=== PATIENT | male | born 1975 | race Hispanic/Latino ===

== ENCOUNTER 2020-08-17 21:56 | Inpatient (IN) | payer OTHER ==
[~2020-08-17] VITALS: Ht 177.8 cm; Wt 115.2 kg
[2020-08-17 22:21] LABS: BASOPHILS % (AUTO) 0.2 % (0.0-5.0); EOSINOPHILS % (AUTO) 0.2 % (0.0-8.0); HEMATOCRIT 44.3 % (42-54); LYMPHOCYTES % (AUTO) 14.3 % (21.0-51.0); MEAN CORPUSCULAR HEMOGLOBIN 27.1 pg (27.0-33.0); MEAN CORPUSCULAR HGB CONC 33.6 g/dL (32.0-36.0); MEAN CORPUSCULAR VOLUME 80.7 fL (79-99); MONOCYTES % (AUTO) 7.5 % (3.0-13.0); NEUTROPHILS % (AUTO) 77.3 % (40.0-77.0); PLATELET COUNT (AUTO) 127 K/uL (130-400); RED BLOOD CELL COUNT(AUTO) 5.49 MIL/uL (4.50-6.20); RED CELL DISTRIBUTION WIDTH 13.2 % (11.0-15.5)
[2020-08-17] MEDS ORDERED: ALBUTEROL INHALER 90MCG/INH IH ONE (22:22)
[2020-08-17] MEDS ORDERED: ACETAMINOPHEN-CODEINE 300/30MG TAB ONE (22:23)
[2020-08-17 22:33] LABS: POTASSIUM 3.4 mmol/L (3.5-5.1)
[2020-08-17 22:40] LABS: ALBUMIN 3.4 g/dL (3.5-5.0); BILIRUBIN,TOTAL 0.4 mg/dL (0.2-1.0); TOTAL PROTEIN, SERUM 7.5 g/dL (6.0-8.3)
[2020-08-17 22:44] LABS: ABG HCO3 27.3 mmol/L (21.0-28.0); ABG OXYGEN SATURATION 91.9 % (95.0-99.0); ABG PCO2 41 mmHg (35-48)
[2020-08-18] MEDS ORDERED: DiphenhydrAMINE HCL 50 MG/ML VIAL IV PRN
[2020-08-18] MEDS ORDERED: ACETAMINOPHEN 325 MG TAB PO PRN
[2020-08-18] MEDS ORDERED: NITROGLYCERIN 0.4 MG SL TAB SL PRN
[2020-08-18] MEDS ORDERED: ALBUTEROL SULFATE 0.083% 2.5 MG/3 ML INH IH PRN
[2020-08-18] MEDS ORDERED: ONDANSETRON HCL 4 MG/2 ML VIAL IV PRN
[2020-08-18] MEDS ORDERED: DIPHENHYDRAMINE HCL 25 MG CAPSULE PO PRN
[2020-08-18] MEDS ORDERED: PHARMACY COMMUNICATION**REMDESIVIR ORDER MISC SCH (00:15)
[2020-08-18] MEDS ORDERED: DEXAMETHASONE SOD PHOSPHATE 10MG/ML 1ML VIAL ONE (00:50)
[2020-08-18] MEDS ORDERED: ERGOCALCIFEROL (VITAMIN D2) 50,000 UNIT CAPSULE ONE (00:50)
[2020-08-18] MEDS ORDERED: CEFTRIAXONE SODIUM 1 GM ONE (00:50)
[2020-08-18 02:59] LABS: BASOPHILS % (AUTO) 0.2 % (0.0-5.0); EOSINOPHILS % (AUTO) 1.6 % (0.0-8.0); HEMATOCRIT 44.1 % (42-54); LYMPHOCYTES % (AUTO) 13.4 % (21.0-51.0); MEAN CORPUSCULAR HEMOGLOBIN 27.8 pg (27.0-33.0); MEAN CORPUSCULAR VOLUME 81.7 fL (79-99); MONOCYTES % (AUTO) 5.1 % (3.0-13.0); NEUTROPHILS % (AUTO) 79.2 % (40.0-77.0); PLATELET COUNT (AUTO) 129 K/uL (130-400); RED CELL DISTRIBUTION WIDTH 13.5 % (11.0-15.5); WHITE BLOOD COUNT (AUTO) 6.3 K/uL (4.8-10.8)
[2020-08-18 03:12] LABS: ALBUMIN 3.3 g/dL (3.5-5.0); BILIRUBIN,TOTAL 0.3 mg/dL (0.2-1.0); CRP QUANTITATIVE 32.5 mg/L (0.00-9.0); POTASSIUM 4.2 mmol/L (3.5-5.1); TOTAL PROTEIN, SERUM 7.4 g/dL (6.0-8.3)
[2020-08-18] MEDS ORDERED: SODIUM CHLORIDE 0.9% 250 ML IV ONE (03:59)
[2020-08-18 04:00] VITALS: BP 134/84
[2020-08-18 08:00] VITALS: BP_SYST 101; BP_SYST 125; BP_DIAS 52; BP_DIAS 80
[2020-08-18] MEDS: ZINC SULFATE 220 CAPSULE PO SCH (08:33)
[2020-08-18] MEDS: ACETYLCYSTEINE 600 MG CAPSULE PO SCH ×2 (08:33→21:08)
[2020-08-18] MEDS: DOXYCYCLINE HYCLATE 100 MG TABLET PO SCH ×2 (08:33→21:08)
[2020-08-18] MEDS: ASCORBIC ACID 500 MG TAB PO SCH ×3 (08:33→21:08)
[2020-08-18] MEDS: ENOXAPARIN SODIUM 40 MG/0.4 ML SYRINGE SQ SCH (08:34)
[2020-08-18] MEDS ORDERED: ERGOCALCIFEROL (VITAMIN D2) 50,000 UNIT CAPSULE PO SCH (09:00)
[2020-08-18] MEDS ORDERED: ENOXAPARIN SODIUM 40 MG/0.4 ML SYRINGE SQ SCH (09:00)
[2020-08-18 11:00] VITALS: BP 137/86
[2020-08-18] MEDS: DEXAMETHASONE SOD PHOSPHATE 4 MG/ML 1ML VIAL IVP SCH ×3 (11:45→23:35)
[2020-08-18] MEDS: CEFTRIAXONE SODIUM 1 GM IVP SCH ×3 (11:45→23:35)
[2020-08-18 16:00] VITALS: BP 145/96
[2020-08-18 19:00] VITALS: BP 117/79
[2020-08-18] MEDS: LACTULOSE 20 GM/30 ML UDCUP PO PRN (21:19)
[2020-08-18] MEDS: ACETAMINOPHEN 325 MG TAB PO PRN (21:31)
[2020-08-19] VITALS: BP 123/78
[2020-08-19 04:00] VITALS: BP 122/75
[2020-08-19 05:57] LABS: BASOPHILS % (AUTO) 0.1 % (0.0-5.0); HEMATOCRIT 42.4 % (42-54); LYMPHOCYTES % (AUTO) 10.9 % (21.0-51.0); MEAN CORPUSCULAR HEMOGLOBIN 27.9 pg (27.0-33.0); MEAN CORPUSCULAR HGB CONC 33.7 g/dL (32.0-36.0); MEAN CORPUSCULAR VOLUME 82.7 fL (79-99); MONOCYTES % (AUTO) 5.8 % (3.0-13.0); NEUTROPHILS % (AUTO) 82.9 % (40.0-77.0); PLATELET COUNT (AUTO) 152 K/uL (130-400); RED BLOOD CELL COUNT(AUTO) 5.13 MIL/uL (4.50-6.20); RED CELL DISTRIBUTION WIDTH 13.6 % (11.0-15.5); WHITE BLOOD COUNT (AUTO) 8.7 K/uL (4.8-10.8)
[2020-08-19 06:30] LABS: ALBUMIN 3.1 g/dL (3.5-5.0); BILIRUBIN,TOTAL 0.5 mg/dL (0.2-1.0); CREATININE 0.9 mg/dL (0.5-1.5); CRP QUANTITATIVE 30.2 mg/L (0.00-9.0); POTASSIUM 3.9 mmol/L (3.5-5.1); TOTAL PROTEIN, SERUM 7.3 g/dL (6.0-8.3)
[2020-08-19] MEDS: ACETYLCYSTEINE 600 MG CAPSULE PO SCH ×2 (08:52→20:02)
[2020-08-19] MEDS: ASCORBIC ACID 500 MG TAB PO SCH ×3 (08:52→20:03)
[2020-08-19] MEDS: ZINC SULFATE 220 CAPSULE PO SCH (08:52)
[2020-08-19] MEDS: DOXYCYCLINE HYCLATE 100 MG TABLET PO SCH ×2 (08:52→20:03)
[2020-08-19] MEDS: ENOXAPARIN SODIUM 40 MG/0.4 ML SYRINGE SQ SCH (08:53)
[2020-08-19 10:06] VITALS: BP 126/73
[2020-08-19] MEDS: DEXAMETHASONE SOD PHOSPHATE 4 MG/ML 1ML VIAL IVP SCH ×2 (11:14→23:24)
[2020-08-19] MEDS: CEFTRIAXONE SODIUM 1 GM IVP SCH ×2 (11:14→23:24)
[2020-08-19 13:01] VITALS: BP 133/82
[2020-08-19] MEDS ORDERED: METOPROLOL TARTRATE 1 MG/ML 5ML VIAL IV PRN (14:45)
[2020-08-19 17:31] VITALS: BP 129/68
[2020-08-19 19:00] VITALS: BP 134/93
[2020-08-19] MEDS: LACTULOSE 20 GM/30 ML UDCUP PO PRN (20:02)
[2020-08-19] MEDS: ACETAMINOPHEN 325 MG TAB PO PRN (20:57)
[2020-08-20] VITALS: BP 140/81
[2020-08-20 04:00] VITALS: BP 101/52
[2020-08-20 06:21] LABS: BASOPHILS % (AUTO) 0.2 % (0.0-5.0); HEMATOCRIT 43.3 % (42-54); LYMPHOCYTES % (AUTO) 8.1 % (21.0-51.0); MEAN CORPUSCULAR HEMOGLOBIN 27.6 pg (27.0-33.0); MEAN CORPUSCULAR HGB CONC 33.5 g/dL (32.0-36.0); MEAN CORPUSCULAR VOLUME 82.5 fL (79-99); MONOCYTES % (AUTO) 6.4 % (3.0-13.0); NEUTROPHILS % (AUTO) 84.6 % (40.0-77.0); PLATELET COUNT (AUTO) 187 K/uL (130-400); RED BLOOD CELL COUNT(AUTO) 5.25 MIL/uL (4.50-6.20); RED CELL DISTRIBUTION WIDTH 13.5 % (11.0-15.5); WHITE BLOOD COUNT (AUTO) 10.8 K/uL (4.8-10.8)
[2020-08-20 06:45] LABS: BILIRUBIN,TOTAL 0.8 mg/dL (0.2-1.0); CREATININE 1.1 mg/dL (0.5-1.5); CRP QUANTITATIVE 85.2 mg/L (0.00-9.0); POTASSIUM 4.1 mmol/L (3.5-5.1); TOTAL PROTEIN, SERUM 7.3 g/dL (6.0-8.3)
[2020-08-20] MEDS: DOXYCYCLINE HYCLATE 100 MG TABLET PO SCH ×2 (09:19→21:08)
[2020-08-20] MEDS: ACETYLCYSTEINE 600 MG CAPSULE PO SCH ×2 (09:20→21:08)
[2020-08-20] MEDS: ASCORBIC ACID 500 MG TAB PO SCH ×3 (09:20→21:08)
[2020-08-20] MEDS: ENOXAPARIN SODIUM 40 MG/0.4 ML SYRINGE SQ SCH (09:20)
[2020-08-20] MEDS: ZINC SULFATE 220 CAPSULE PO SCH (09:20)
[2020-08-20 09:25] VITALS: BP 130/81
[2020-08-20] MEDS ORDERED: COMPOUND IV REFRIGERATED 1 EACH IVSOLN MISC PRN (10:30)
[2020-08-20] MEDS ORDERED: REMDESIVIR (EUA) 520 200 MG in SODIUM CHLORIDE 0.9% 250 ML IV ONE (10:30)
[2020-08-20] MEDS: DEXAMETHASONE SOD PHOSPHATE 4 MG/ML 1ML VIAL IVP SCH ×2 (12:02→23:35)
[2020-08-20] MEDS: GUAIFENESIN-CODEINE 5 ML SYRUP PO PRN ×2 (12:02→16:45)
[2020-08-20] MEDS: CEFTRIAXONE SODIUM 1 GM IVP SCH ×2 (12:36→23:35)
[2020-08-20 12:59] VITALS: BP 131/73
[2020-08-20 16:51] VITALS: BP 119/68
[2020-08-20 19:00] VITALS: BP 110/68
[2020-08-20] MEDS: FAMOTIDINE/PF 20 MG/2 ML VIAL IV SCH (21:08)
[2020-08-21] VITALS: BP 127/69
[2020-08-21 04:00] VITALS: BP 131/80
[2020-08-21] MEDS ORDERED: REMDESIVIR LABS MISC SCH (06:00)
[2020-08-21 06:12] LABS: BASOPHILS % (AUTO) 0.2 % (0.0-5.0); HEMATOCRIT 43.4 % (42-54); LYMPHOCYTES % (AUTO) 10.8 % (21.0-51.0); MEAN CORPUSCULAR HEMOGLOBIN 27.7 pg (27.0-33.0); MEAN CORPUSCULAR HGB CONC 33.6 g/dL (32.0-36.0); MEAN CORPUSCULAR VOLUME 82.2 fL (79-99); MONOCYTES % (AUTO) 5.6 % (3.0-13.0); NEUTROPHILS % (AUTO) 82.4 % (40.0-77.0); PLATELET COUNT (AUTO) 210 K/uL (130-400); RED BLOOD CELL COUNT(AUTO) 5.28 MIL/uL (4.50-6.20); RED CELL DISTRIBUTION WIDTH 13.5 % (11.0-15.5); WHITE BLOOD COUNT (AUTO) 9.8 K/uL (4.8-10.8)
[2020-08-21 06:38] LABS: CREATININE 0.9 mg/dL (0.5-1.5)
[2020-08-21] MEDS: ZINC SULFATE 220 CAPSULE PO SCH (08:08)
[2020-08-21] MEDS: ACETYLCYSTEINE 600 MG CAPSULE PO SCH ×2 (08:08→20:21)
[2020-08-21] MEDS: ASCORBIC ACID 500 MG TAB PO SCH ×3 (08:08→20:21)
[2020-08-21] MEDS: DOXYCYCLINE HYCLATE 100 MG TABLET PO SCH ×2 (08:08→20:21)
[2020-08-21] MEDS: FAMOTIDINE/PF 20 MG/2 ML VIAL IV SCH ×2 (08:09→20:21)
[2020-08-21] MEDS: ENOXAPARIN SODIUM 40 MG/0.4 ML SYRINGE SQ SCH (08:09)
[2020-08-21 08:42] VITALS: BP 144/91
[2020-08-21] MEDS ORDERED: BENZONATATE 100 MG CAPSULE PO PRN (10:30)
[2020-08-21] MEDS: CEFTRIAXONE SODIUM 1 GM IVP SCH ×2 (11:24→23:58)
[2020-08-21] MEDS: DEXAMETHASONE SOD PHOSPHATE 4 MG/ML 1ML VIAL IVP SCH ×2 (11:24→23:58)
[2020-08-21 12:43] VITALS: BP 140/90
[2020-08-21] MEDS: REMDESIVIR (EUA) 520 100 MG in SODIUM CHLORIDE 0.9% 250 ML IV SCH (13:06)
[2020-08-21] MEDS: MAG HYDROX/AL HYDROX/SIMETH ES 30 ML SUSP UDCUP PO PRN (17:15)
[2020-08-21 18:46] VITALS: BP 142/95
[2020-08-21 20:00] VITALS: BP 128/85
[2020-08-22] VITALS (7 sets, daily range): BP systolic 92–136; BP diastolic 56–72
[2020-08-22 05:42] LABS: BASOPHILS % (AUTO) 0.2 % (0.0-5.0); HEMATOCRIT 42.4 % (42-54); LYMPHOCYTES % (AUTO) 12.6 % (21.0-51.0); MEAN CORPUSCULAR HEMOGLOBIN 29.1 pg (27.0-33.0); MEAN CORPUSCULAR HGB CONC 35.1 g/dL (32.0-36.0); MEAN CORPUSCULAR VOLUME 82.8 fL (79-99); MONOCYTES % (AUTO) 5.7 % (3.0-13.0); NEUTROPHILS % (AUTO) 80.2 % (40.0-77.0); PLATELET COUNT (AUTO) 273 K/uL (130-400); RED BLOOD CELL COUNT(AUTO) 5.12 MIL/uL (4.50-6.20); RED CELL DISTRIBUTION WIDTH 13.4 % (11.0-15.5); WHITE BLOOD COUNT (AUTO) 10.4 K/uL (4.8-10.8)
[2020-08-22 06:19] LABS: ALBUMIN 2.9 g/dL (3.5-5.0); BILIRUBIN,TOTAL 0.9 mg/dL (0.2-1.0); CREATININE 1.1 mg/dL (0.5-1.5); TOTAL PROTEIN, SERUM 7.1 g/dL (6.0-8.3)
[2020-08-22] MEDS: ASCORBIC ACID 500 MG TAB PO SCH ×3 (09:37→20:43)
[2020-08-22] MEDS: FAMOTIDINE/PF 20 MG/2 ML VIAL IV SCH ×2 (09:37→20:43)
[2020-08-22] MEDS: DOXYCYCLINE HYCLATE 100 MG TABLET PO SCH ×2 (09:37→20:43)
[2020-08-22] MEDS: ZINC SULFATE 220 CAPSULE PO SCH (09:37)
[2020-08-22] MEDS: ACETYLCYSTEINE 600 MG CAPSULE PO SCH ×2 (09:37→20:43)
[2020-08-22] MEDS: ENOXAPARIN SODIUM 40 MG/0.4 ML SYRINGE SQ SCH (09:38)
[2020-08-22] MEDS: DEXAMETHASONE SOD PHOSPHATE 4 MG/ML 1ML VIAL IVP SCH (12:50)
[2020-08-22] MEDS: CEFTRIAXONE SODIUM 1 GM IVP SCH (12:50)
[2020-08-22] MEDS: REMDESIVIR (EUA) 520 100 MG in SODIUM CHLORIDE 0.9% 250 ML IV SCH (14:36)
[2020-08-22] MEDS: MAG HYDROX/AL HYDROX/SIMETH ES 30 ML SUSP UDCUP PO PRN (17:40)
[2020-08-23] MEDS: DEXAMETHASONE SOD PHOSPHATE 4 MG/ML 1ML VIAL IVP SCH ×3 (00:08→23:20)
[2020-08-23] MEDS: CEFTRIAXONE SODIUM 1 GM IVP SCH ×3 (00:09→23:41)
[2020-08-23 03:59] VITALS: BP 92/54
[2020-08-23 05:11] LABS: BASOPHILS % (AUTO) 0.1 % (0.0-5.0); HEMATOCRIT 42.9 % (42-54); LYMPHOCYTES % (AUTO) 12.4 % (21.0-51.0); MEAN CORPUSCULAR HEMOGLOBIN 27.7 pg (27.0-33.0); MEAN CORPUSCULAR HGB CONC 33.6 g/dL (32.0-36.0); MEAN CORPUSCULAR VOLUME 82.5 fL (79-99); MONOCYTES % (AUTO) 5.7 % (3.0-13.0); NEUTROPHILS % (AUTO) 80.1 % (40.0-77.0); PLATELET COUNT (AUTO) 279 K/uL (130-400); RED CELL DISTRIBUTION WIDTH 13.4 % (11.0-15.5); WHITE BLOOD COUNT (AUTO) 10.9 K/uL (4.8-10.8)
[2020-08-23 05:44] LABS: ALBUMIN 2.8 g/dL (3.5-5.0); BILIRUBIN,TOTAL 0.8 mg/dL (0.2-1.0); POTASSIUM 4.4 mmol/L (3.5-5.1); TOTAL PROTEIN, SERUM 6.8 g/dL (6.0-8.3)
[2020-08-23 08:00] VITALS: BP 100/63
[2020-08-23] MEDS: ENOXAPARIN SODIUM 40 MG/0.4 ML SYRINGE SQ SCH (08:46)
[2020-08-23] MEDS: ACETYLCYSTEINE 600 MG CAPSULE PO SCH ×2 (08:46→20:49)
[2020-08-23] MEDS: FAMOTIDINE/PF 20 MG/2 ML VIAL IV SCH ×2 (08:46→20:49)
[2020-08-23] MEDS: DOXYCYCLINE HYCLATE 100 MG TABLET PO SCH ×2 (08:46→20:49)
[2020-08-23] MEDS: ASCORBIC ACID 500 MG TAB PO SCH ×3 (08:46→20:49)
[2020-08-23] MEDS: ZINC SULFATE 220 CAPSULE PO SCH (08:46)
[2020-08-23 12:00] VITALS: BP 119/67
[2020-08-23] MEDS: REMDESIVIR (EUA) 520 100 MG in SODIUM CHLORIDE 0.9% 250 ML IV SCH (15:01)
[2020-08-23 16:00] VITALS: BP 121/70
[2020-08-23 20:01] VITALS: BP 111/72
[2020-08-23 23:57] VITALS: BP 115/71
[2020-08-24 03:37] VITALS: BP 115/72
[2020-08-24 04:34] LABS: BASOPHILS % (AUTO) 0.2 % (0.0-5.0); HEMATOCRIT 43.6 % (42-54); LYMPHOCYTES % (AUTO) 13.6 % (21.0-51.0); MEAN CORPUSCULAR HEMOGLOBIN 28.7 pg (27.0-33.0); MEAN CORPUSCULAR HGB CONC 34.4 g/dL (32.0-36.0); MEAN CORPUSCULAR VOLUME 83.4 fL (79-99); MONOCYTES % (AUTO) 5.2 % (3.0-13.0); PLATELET COUNT (AUTO) 308 K/uL (130-400); RED BLOOD CELL COUNT(AUTO) 5.23 MIL/uL (4.50-6.20); RED CELL DISTRIBUTION WIDTH 13.5 % (11.0-15.5); WHITE BLOOD COUNT (AUTO) 10.7 K/uL (4.8-10.8)
[2020-08-24 04:55] LABS: ALBUMIN 2.8 g/dL (3.5-5.0); BILIRUBIN,TOTAL 0.7 mg/dL (0.2-1.0); CREATININE 0.9 mg/dL (0.5-1.5); POTASSIUM 4.3 mmol/L (3.5-5.1); TOTAL PROTEIN, SERUM 6.8 g/dL (6.0-8.3)
[2020-08-24 08:00] VITALS: BP 109/71
[2020-08-24] MEDS: ASCORBIC ACID 500 MG TAB PO SCH ×2 (08:57→13:25)
[2020-08-24] MEDS: FAMOTIDINE/PF 20 MG/2 ML VIAL IV SCH (08:57)
[2020-08-24] MEDS: DOXYCYCLINE HYCLATE 100 MG TABLET PO SCH (08:57)
[2020-08-24] MEDS: ZINC SULFATE 220 CAPSULE PO SCH (08:57)
[2020-08-24] MEDS: ENOXAPARIN SODIUM 40 MG/0.4 ML SYRINGE SQ SCH (08:57)
[2020-08-24] MEDS: ACETYLCYSTEINE 600 MG CAPSULE PO SCH (08:57)
[2020-08-24] MEDS ORDERED: DEXA6TAB7 PO (08:59)
[2020-08-24] MEDS ORDERED: ASPI-1005 PO (08:59)
[2020-08-24 12:33] VITALS: BP 121/73
[2020-08-24] MEDS: CEFTRIAXONE SODIUM 1 GM IVP SCH (13:25)
[2020-08-24] MEDS: REMDESIVIR (EUA) 520 100 MG in SODIUM CHLORIDE 0.9% 250 ML IV SCH (14:11)
[2020-08-24 17:51] VITALS: BP 120/67
[2020-08-25] MEDS ORDERED: DEXAMETHASONE SOD PHOSPHATE 4 MG/ML 1ML VIAL IVP SCH (09:00)
== END 2020-08-24 21:13 | disposition home or self-care (01) | DRG 177 ==
LOC: EDH 21:56 → EDHIP 23:58 → 4AH 08-18 03:19
PROVIDERS: ADMIT Family Medicine; ATTEND Family Medicine
PROC: XW13325 Transfusion of Convalescent Plasma (Nonautologous) into Peripheral Vein, Percutaneous Approach, New Technology Group 5 (ICD-10-PCS; 2020-08-18)
PROC: XW033E5 Introduction of Remdesivir Anti-infective into Peripheral Vein, Percutaneous Approach, New Technology Group 5 (ICD-10-PCS; principal; 2020-08-20)
DX: U07.1 COVID-19 (principal); J80 Acute respiratory distress syndrome; J12.82 Pneumonia due to coronavirus disease 2019; D72.810 Lymphocytopenia; I10 Essential (primary) hypertension; Z90.49 Acquired absence of other specified parts of digestive tract
CPT/HCPCS: 36415; 36430; 36600; 71045; 71250; 80048; 80053; 82550; 82728; 82803; 83615; 83880; 84145; 84484; 85025; 85378; 86140; 86900; 86901; 86927; 87426; 93005; 94760; G0378; J0696; J1100; J1200; J1650; J3490; J7050

== ENCOUNTER 2021-02-16 10:49 | Emergency (ER) | payer OTHER ==
[~2021-02-16] VITALS: Ht 177.8 cm; Wt 113.4 kg
[~2021-02-16 10:49] MED LIST: ASPI-1005 PO; DEXA6TAB7 PO
[2021-02-16 11:34] VITALS: BP 115/82
[2021-02-16] MEDS ORDERED: LIDOCAINE HCL 2% VISCOUS 15 ML UDCUP ONE (13:15)
[2021-02-16 13:30] VITALS: BP 113/73
[2021-02-16 14:43] VITALS: BP 122/76
== END 2021-02-16 15:29 | disposition home or self-care (01) ==
LOC: EDH 10:49
DX: T16.1XXA Foreign body in right ear, initial encounter (principal); E78.00 Pure hypercholesterolemia, unspecified; Z79.82 Long term (current) use of aspirin; Z79.52 Long term (current) use of systemic steroids; Z86.16 Personal history of COVID-19; X58.XXXA Exposure to other specified factors, initial encounter; Y93.89 Activity, other specified; Y92.89 Other specified places as the place of occurrence of the external cause; Y99.8 Other external cause status